=== PATIENT | male | born 1980 | race Caucasian/White ===

== ENCOUNTER 2017-02-19 00:37 | Emergency (ER) | payer MEDICAID ==
[~2017-02-19] VITALS: Ht 193 cm; Wt 90.0 kg
[~2017-02-19 00:37] MED LIST: DIVA500T2 PO; FLUO20CA19 PO; QUET100T4 PO
[2017-02-19 00:38] VITALS: BP 116/75
[2017-02-19] MEDS ORDERED: QUET300T5 PO (01:22)
[2017-02-19] MEDS ORDERED: RANI300T3 PO (01:22)
[2017-02-19] MEDS ORDERED: DIVA500T2 PO (01:22)
[2017-02-19] MEDS ORDERED: SODIUM CHLORIDE 0.9% 1,000ML IVBOLUS ONE (01:30)
[2017-02-19 01:38] LABS: ASPARTATE AMINO TRANSFERASE 14 U/L (15-37); BLOOD UREA NITROGEN 7 mg/dL (7-18)
[2017-02-19 01:40] LABS: ACETAMINOPHEN < 2 mcg/mL (10-30)
[2017-02-19] MEDS ORDERED: LORazepam 2 MG/ML, 1ML IVPush ONE (02:00)
== END 2017-02-19 02:22 | disposition home or self-care (01) ==
LOC: ED 02:05
DX: F41.1 Generalized anxiety disorder (principal); F10.120 Alcohol abuse with intoxication, uncomplicated; E78.5 Hyperlipidemia, unspecified; F31.9 Bipolar disorder, unspecified
CPT/HCPCS: 36415; 80053; 80307; 80329; 85025; 96360; 99284; J7030; G0480

== ENCOUNTER 2018-01-26 11:22 | Emergency (ER) | payer MEDICAID ==
[~2018-01-26] VITALS: Ht 195.6 cm; Wt 82.7 kg
[~2018-01-26 11:22] MED LIST changes: +QUET300T5 PO; +RANI300T3 PO
[2018-01-26 11:36] VITALS: BP 132/87
== END 2018-01-26 12:27 | disposition left against medical advice (07) ==
LOC: ED 12:22
DX: S06.0X0A Concussion without loss of consciousness, initial encounter (principal); S01.01XA Laceration without foreign body of scalp, initial encounter; E78.5 Hyperlipidemia, unspecified; X58.XXXA Exposure to other specified factors, initial encounter; Y93.89 Activity, other specified; Y92.009 Unspecified place in unspecified non-institutional (private) residence as the place of occurrence of the external cause; Y99.8 Other external cause status
CPT/HCPCS: 12014; 99284

== ENCOUNTER 2018-07-28 12:20 | Emergency (ER) | payer MEDICAID ==
[~2018-07-28] VITALS: Ht 193 cm; Wt 88.0 kg
--- NOTE | 2018-07-28 12:56 | NUR ---
PT. IS A & O X 4 WITH C/O ABD. PAIN AND CRAMPING SINCE THIS MORNING. PT.'S ABD. IS SOFT AND FLAT WITH BS + X 4 QUADS. PT. WAS TAKEN TO RADIOLOGY.
[2018-07-28] MEDS ORDERED: DICYCLOMINE 10 MG/ML, 2ML IM ONE (13:00)
[2018-07-28 13:15] LABS: BASOPHILS # (AUTO) 0.12 x10^3/uL (0-0.1); BASOPHILS % (AUTO) 2 % (0-1); EOSINOPHILS # (AUTO) 0.18 x10^3/uL (0-0.4); EOSINOPHILS % (AUTO) 2 % (1-7); LYMPHOCYTES # (AUTO) 2.08 x10^3/uL (1-3.4); LYMPHOCYTES % (AUTO) 27 % (22-44); MD NO; MEAN CORPUSCULAR HEMOGLOBIN 32.4 pg (27.5-34.5); MEAN CORPUSCULAR HGB CONC 33.9 g/dL (33.2-36.2); MEAN CORPUSCULAR VOLUME 95.6 fL (81-97); MEAN PLATELET VOLUME 8.3 fL (7.4-10.4); MONOCYTES # (AUTO) 0.53 x10^3/uL (0.2-0.8); MONOCYTES % (AUTO) 7 % (2-9); NEUTROPHILS # (AUTO) 4.72 x10^3/uL (1.8-6.8); NEUTROPHILS % (AUTO) 62 % (42-75); PLATELET COUNT 188 x10^3/uL (130-400); RED BLOOD COUNT 4.86 x10^6/uL (4.38-5.82); RED CELL DISTRIBUTION WIDTH 14.4 % (9.4-14.8)
[2018-07-28] MEDS ORDERED: ONDANSETRON ODT 4 MG ONE (13:24)
[2018-07-28] MEDS ORDERED: DICYCLOMINE 10 MG/ML, 2ML ONE (13:24)
[2018-07-28 13:31] LABS: ALBUMIN 3.7 g/dL (3.4-5.0); ANION GAP 5 mmol/L (5-15); CALCIUM 9.3 mg/dL (8.5-10.1); CHLORIDE 100 mmol/L (98-107)
[2018-07-28 13:35] LABS: ALANINE AMINOTRANSFERASE 34 U/L (12-78); ALKALINE PHOSPHATASE 111 U/L (45-117); BILIRUBIN,TOTAL 0.7 mg/dL (0.2-1.0); TOTAL PROTEIN 7.2 g/dL (6.4-8.2)
[2018-07-28] MEDS ORDERED: ONDANSETRON ODT 4 MG PO ONE (14:00)
[2018-07-28 14:05] VITALS: BP 119/81
== END 2018-07-28 14:14 | disposition home or self-care (01) ==
LOC: ED 14:09
DX: R10.32 Left lower quadrant pain (principal); R10.84 Generalized abdominal pain; R11.0 Nausea; R19.7 Diarrhea, unspecified
CPT/HCPCS: 36415; 74021; 80053; 83690; 85025; 96372; 99284; J0500; Q0162

== ENCOUNTER 2020-03-16 13:38 | Emergency (ER) | payer MEDICAID ==
[~2020-03-16] VITALS: Ht 193 cm; Wt 87.0 kg
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
[2020-03-16 14:17] VITALS: BP 120/80
--- NOTE | 2020-03-16 14:36 | NUR ---
PT HAS BEEN SEEN BY PRABHA ROSE. PT READY FOR DC
[2020-03-16] MEDS ORDERED: NEOSPORIN OINT. PKT 1 PACKET ONE (14:39)
--- NOTE | 2020-03-16 14:46 | NUR ---
PT REPORTS HE WANTS TO LEAVE. PROVIDER AWARE. PT REFUSED TO STAY. PT REPORTS HE JUST WANTED TO SEE IF HIS LIP NEEDED STICHES. PT REFUSED CAB VOUCHER. PT IS A&O X4, PT IS ABLE TO GET SELF DRESS AND SAFELY AMBULATE AROUND ROOM AND BRAVO. PT DISCHAGED PER PRABHA ORSE.
== END 2020-03-16 14:58 | disposition home or self-care (01) ==
LOC: ED 14:36
DX: S00.81XA Abrasion of other part of head, initial encounter (principal); S00.212A Abrasion of left eyelid and periocular area, initial encounter; E78.5 Hyperlipidemia, unspecified; Z88.0 Allergy status to penicillin; Y04.0XXA Assault by unarmed brawl or fight, initial encounter; Y93.89 Activity, other specified; Y92.098 Other place in other non-institutional residence as the place of occurrence of the external cause; Y99.8 Other external cause status
CPT/HCPCS: 99282

== ENCOUNTER 2020-04-08 16:01 | Emergency (ER) | payer MEDICAID ==
[~2020-04-08] VITALS: Ht 195.6 cm; Wt 87.7 kg
[2020-04-08 16:03] VITALS: BP 123/76
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
--- NOTE | 2020-04-08 17:38 | NUR ---
Patient/Caregiver given discharge instructions and they have confirmed that they understand the instructions. Patient ambulatory with steady gait.
== END 2020-04-08 17:51 | disposition home or self-care (01) ==
LOC: ED 17:27
DX: S60.021A Contusion of right index finger without damage to nail, initial encounter (principal); S50.01XA Contusion of right elbow, initial encounter; F17.210 Nicotine dependence, cigarettes, uncomplicated; Y04.8XXA Assault by other bodily force, initial encounter; Y93.39 Activity, other involving climbing, rappelling and jumping off; Y92.488 Other paved roadways as the place of occurrence of the external cause; Y99.8 Other external cause status
CPT/HCPCS: 29130; 99284

== ENCOUNTER 2020-06-26 22:02 | Emergency (ER) | payer MEDICAID ==
[~2020-06-26] VITALS: Ht 195.6 cm; Wt 83.9 kg
[2020-06-26 22:06] VITALS: BP 107/79
[2020-06-26] MEDS ORDERED: DIPHENHYDRAMINE 25 MG CAPSULE PO ONE (22:30)
--- NOTE | 2020-06-27 00:13 | NUR ---
hog dropper: pt from lobby to room 18
[2020-06-27] MEDS ORDERED: DIPHENHYDRAMINE 25 MG CAPSULE ONE (00:26)
--- NOTE | 2020-06-27 00:31 | NUR ---
PT STATES HE THINK HE HAS AN ALLERGY TO POLYESTER, NOT WEARING ANY CURRENTLY. LYING IN GURNEY SCRATCHING BACK. NO RASH NOTED ON SKIN AT THIS TIME, SPEAKING IN CLEAR SENTENCES.
== END 2020-06-27 00:53 | disposition home or self-care (01) ==
LOC: ED 06-27 00:36
DX: T78.40XA Allergy, unspecified, initial encounter (principal); L50.9 Urticaria, unspecified; L08.9 Local infection of the skin and subcutaneous tissue, unspecified; E78.5 Hyperlipidemia, unspecified; W57.XXXA Bitten or stung by nonvenomous insect and other nonvenomous arthropods, initial encounter; Y93.89 Activity, other specified; Y92.89 Other specified places as the place of occurrence of the external cause; Y99.8 Other external cause status
CPT/HCPCS: 99282; Q0163

== ENCOUNTER 2020-07-25 14:11 | Emergency (ER) | payer MEDICAID ==
[~2020-07-25] VITALS: Ht 195.6 cm; Wt 84.0 kg
[2020-07-25 14:14] VITALS: BP 106/75
== END 2020-07-25 15:08 | disposition home or self-care (01) ==
LOC: ED 14:22
DX: S61.412A Laceration without foreign body of left hand, initial encounter (principal); L03.114 Cellulitis of left upper limb; F17.200 Nicotine dependence, unspecified, uncomplicated; W26.8XXA Contact with other sharp object(s), not elsewhere classified, initial encounter; Y93.89 Activity, other specified; Y92.098 Other place in other non-institutional residence as the place of occurrence of the external cause; Y99.8 Other external cause status
CPT/HCPCS: 99283

== ENCOUNTER 2021-04-09 07:57 | Emergency (ER) | payer MEDICAID ==
[~2021-04-09] VITALS: Ht 195.6 cm; Wt 90.1 kg
--- NOTE | 2021-04-09 08:34 | NUR ---
ER PA WAS IN TO SEE PT. PT REPORTS DRINKING AT 0300 THIS AM. TACHY WITH HR IN 120s.
[2021-04-09] MEDS ORDERED: DIPH,PERTUSS(ACELL),TET VAC/PF 0.5 ML IM-VACC ONE ×2 (09:00→09:03)
[2021-04-09] MEDS ORDERED: SODIUM CHLORIDE 0.9% 1,000ML IVBOLUS ONE (09:00)
[2021-04-09] MEDS ORDERED: SODIUM CHLORIDE FLUSH 10ML SYR IVF ONE (09:00)
[2021-04-09 09:04] LABS: BASOPHILS % (AUTO) 1 % (0-1); EOSINOPHILS % (AUTO) 2 % (1-7); LYMPHOCYTES % (AUTO) 39 % (22-44); MEAN CORPUSCULAR HGB CONC 35.1 g/dL (33.2-36.2); MEAN PLATELET VOLUME 8.3 fL (7.4-10.4); MONOCYTES % (AUTO) 7 % (2-9); NEUTROPHILS % (AUTO) 52 % (42-75); PLATELET COUNT 158 x10^3/uL (130-400); RED BLOOD COUNT 4.34 x10^6/uL (4.38-5.82); RED CELL DISTRIBUTION WIDTH 15.4 % (9.4-14.8)
[2021-04-09 09:13] LABS: ANION GAP 9 mmol/L (5-15); CALCIUM 8.6 mg/dL (8.5-10.1); CHLORIDE 105 mmol/L (98-107); CREATININE 1.12 mg/dL (0.7-1.3)
[2021-04-09 09:14] LABS: ALANINE AMINOTRANSFERASE 12 U/L (12-78); ALBUMIN 3.5 g/dL (3.4-5.0)
[2021-04-09 09:16] LABS: ALKALINE PHOSPHATASE 82 U/L (45-117); BILIRUBIN,TOTAL 0.3 mg/dL (0.2-1.0); TOTAL PROTEIN 6.9 g/dL (6.4-8.2)
--- NOTE | 2021-04-09 09:20 | NUR ---
ERP AT BS.
[2021-04-09] MEDS ORDERED: CEFTRIAXONE 1,000 MG in DEXTROSE 5% 50 ML IVPB ONE (09:30)
[2021-04-09 10:00] VITALS: BP 108/75
--- NOTE | 2021-04-09 10:29 | NUR ---
D/C INSTRUCTIONS, MEDS & F/U APPT RV'WD WITH PT, HE VERBALIZES UNDERSTANDING. RX GIVEN X2. PT WAS INSTRUCTED TO RETURN TO ED IN 48HOURS FOR RECHECK. AMBULATED OUT OF ED WITHOUT DIFFICULTY.
== END 2021-04-09 13:50 | disposition home or self-care (01) ==
LOC: ED 10:30
DX: S61.451A Open bite of right hand, initial encounter (principal); L03.113 Cellulitis of right upper limb; R00.0 Tachycardia, unspecified; E78.5 Hyperlipidemia, unspecified; Z88.0 Allergy status to penicillin; W55.01XA Bitten by cat, initial encounter; Y93.89 Activity, other specified; Y92.009 Unspecified place in unspecified non-institutional (private) residence as the place of occurrence of the external cause; Y99.8 Other external cause status
CPT/HCPCS: 36415; 73130; 80053; 80320; 83605; 85025; 87040; 90471; 90715; 93005; 96365; 99285; J0696; J7030; G0480